=== PATIENT | male | born 1960 | race Caucasian/White ===

== ENCOUNTER 2018-08-17 09:46 | Day surgery (SDC) | payer BC ==
[~2018-08-17 09:46] MED LIST: Lactated Ringers 1,000 ML IV SCH; Propofol 200 MG/20 ML SDV ONE; Sodium Chloride 0.9% 10 ML Syringe FLUSH PRN
--- NOTE | 2018-08-17 11:45 | PCM.PN ---
- General Info Date of Service: 08/17/18 - Review of Systems Systems Review Comment:: 58 y/o male here for his first colonoscopy. He denies any recent colon symptoms and also denies any family history of colon cancer. He is medically stable to proceed today with no significant recent change in his health status. I discussed the proposed colonoscopy with the patient. Risks such as but not limited to bleeding and GI injury reviewed. He appears to understand and agrees to proceed. - Patient Data Vitals - Most Recent: Last Vital Signs Temp 97.8 F 08/17/18 10:30 Pulse 74 08/17/18 10:30 Resp 18 08/17/18 10:30 BP 130/84 08/17/18 10:30 Pulse Ox 94 L 08/17/18 10:30 Weight - Most Recent: 108.862 kg Med Orders - Current: Current Medications Lactated Ringer's (Ringers, Lactated) 1,000 mls @ 125 mls/hr IV ASDIRECTED ANNE Last Admin: 08/17/18 10:21 Dose: 125 mls/hr Sodium Chloride (Saline Flush) 10 ml FLUSH ASDIRECTED PRN PRN Reason: Keep Vein Open Discontinued Medications Propofol (Diprivan 20 Ml) Confirm Administered Dose 400 mg .ROUTE .STK-MED ONE Stop: 08/17/18 08:00 - Problem List Review Problem List Initiated/Reviewed/Updated: Yes - Assessment Assessment:: colon cancer screening - Plan Plan:: colonoscopy
[2018-08-17] MEDS ORDERED: Propofol 200 MG/20 ML SDV ONE (11:51)
--- NOTE | 2018-08-17 12:28 | PCM.OPNOTE ---
- General Post-Op/Procedure Note Date of Surgery/Procedure: 08/17/18 Operative Procedure(s): Colonoscopy Findings: large External hemorrhoid but otherwise normal colon Pre Op Diagnosis: Colon Cancer Screening Post-Op Diagnosis: Hemorrhoids Anesthesia Technique: MAC Primary Surgeon: Brandon Calvert Pathology: none Output, Urine Amount: 0 EBL in mLs: 0 Complications: None Condition: Good
[2018-08-17 12:54] VITALS: BP 118/74
--- NOTE | 2018-08-17 13:15 | OR ---
Date of Procedure: 08/17/2018 PREOPERATIVE DIAGNOSIS: Colon cancer screening. POSTOPERATIVE DIAGNOSIS: External hemorrhoid. OPERATION PERFORMED: Colonoscopy. INDICATIONS FOR SURGERY: This 58-year-old male presents today for his initial screening colonoscopy. He denies any recent symptoms or any known family history of colon cancer. FINDINGS: The patient's colon appears normal. He does have a prominent external hemorrhoid, but this appears benign, and no other pathology is noted. DESCRIPTION OF PROCEDURE: The patient was taken to the operating room. He was given intravenous sedation, and with him in the left lateral decubitus position, a digital rectal exam was performed showing no rectal masses. The Olympus colonoscope was inserted into the rectum and retroflexed. Examination of the rectal canal was performed. The scope was then carefully advanced under direct visualization through the entire length of the colon until the cecum was reached. Cecal acquisition was confirmed by noting normal internal cecal anatomy including the appendiceal orifice and ileocecal valve. The light was also noted to transilluminate the abdominal wall in the right lower quadrant. After examining the cecum, the scope was slowly withdrawn sequentially re- examining the colonic segments until the entire colon and rectum have been fully examined. The scope was removed, and the patient was taken from the operating room in satisfactory condition. ESTIMATED BLOOD LOSS: Zero. COMPLICATIONS: None. PROGNOSIS: Good. RUTH Calvert MD /[id number]
== END 2018-08-17 13:55 | disposition home or self-care (01) ==
LOC: LL.SDS 09:46
PROVIDERS: ATTEND Surgery
DX: Z12.11 Encounter for screening for malignant neoplasm of colon (principal); K64.4 Residual hemorrhoidal skin tags; I10 Essential (primary) hypertension; E78.5 Hyperlipidemia, unspecified; D68.51 Activated protein C resistance; Z79.899 Other long term (current) drug therapy
CPT/HCPCS: J2704; J7120

== ENCOUNTER 2019-12-31 05:14 | Emergency (ER) | payer BC, OTHER ==
[2019-12-31 05:27] VITALS: BP 142/97; PULSE 88
--- NOTE | 2019-12-31 05:36 | EDM.PDOC ---
ED HPI GENERAL MEDICAL PROBLEM - General Chief Complaint: Upper Extremity Injury/Pain Stated Complaint: left hand injury Time Seen by Provider: 12/31/19 05:30 Source of Information: Reports: Patient, Old Records ([facility] chart/EMR) History Limitations: Reports: No Limitations - History of Present Illness INITIAL COMMENTS - FREE TEXT/NARRATIVE: The patient was brought to the emergency room via transport vehicle from [facility] for evaluation of a Workmen's Compensation injury, which occurred at about 04: 20 hours this morning. The patient got his fourth finger of his left hand caught on a hydraulic clamp on a jig resulting in a laceration with no treatment prior to arrival. The patient is left-handed and has not injured this finger in the past. No history of foreign body, paresthesias, neurological deficits, other complaints/injuries, etc. No recent history of abdominal pain, heartburn, nausea, diarrhea, melena, gross hematochezia, or any food intolerance , including fatty foods, etc.. The patient also denies any recent fever, cough, wheezing, dyspnea, etc.. Onset: Today, Sudden Onset Date: 12/31/19 Onset Time: 04:20 Duration: Constant Location: Reports: Upper Extremity, Left. Denies: Head, Face, Neck, Chest, Abdomen, Back, Pelvis, Lower Extremity, Left, Radiates to Quality: Reports: Throbbing Severity: Mild Improves with: Reports: Rest Worsens with: Reports: Movement Context: Reports: Trauma (As above) Associated Symptoms: Denies: Confusion, Chest Pain, Cough, Diaphoresis, Fever/ Chills, Headaches, Loss of Appetite, Malaise, Nausea/Vomiting, Seizure, Shortness of Breath, Syncope, Weakness Treatments MODEL BUILDER DISPLAY: Reports: Dressing(s) Left Finger-Ring Pain Score (Numeric/FACES): 2 - Related Data Allergies Allergy/AdvReac Type Severity Reaction Status Date / Time No Known Allergies Allergy Verified 12/31/19 05:15 Home Meds: Home Meds Simvastatin [Zocor] 20 mg PO BEDTIME 02/26/15 [History] Terazosin [Hytrin] 1 mg PO BEDTIME 02/26/15 [History] Omeprazole 20 mg PO DAILY 08/16/18 [History] Amoxicillin/Clavulanate K [Augmentin 875-125 MG] 1 tab PO BIDMEALS #20 tablet [Rx] Fish,Saf,Flx,Brg Oils/O3,6,9N2 [Bery-Ldjv-Nevxaq Oil Softgel] 2 cap PO DAILY 09/09 [History] Ibuprofen/Diphenhydramine Cit [Advil Pm Caplet] 2 tab PO BEDTIME PRN 12/31/19 [ History] Past Medical History HEENT History: Reports: Allergic Rhinitis. Denies: Hard of Hearing, Impaired Vision Other HEENT History: Chronic rhinitis Cardiovascular History: Reports: Blood Clots/VTE/DVT, High Cholesterol, Hypertension, Other (See Below) Other Cardiovascular History: DVT of the left calf in August 1995. Respiratory History: Denies: PE, Sleep Apnea Gastrointestinal History: Reports: Gastritis, Hemorrhoids, PUD, Other (See Below ) Other Gastrointestinal History: Esophagitis with gastric ulcers by EGD in 2014 as below. Genitourinary History: Reports: BPH Musculoskeletal History: Reports: Amputation, Arthritis, Back Pain, Chronic, Osteoarthritis, Other (See Below). Denies: Fracture, Gout, RA, SLE Other Musculoskeletal History: Chronic tendonitis of Right ankle. Partial amputation of distal phalanx of digit #3 of the right hand in 1993 secondary to a lawnmower injury. 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 Restless leg syndrome. Endocrine/Metabolic History: Reports: Obesity/BMI 30+ Hematologic History: Reports: Other (See Below) Other Hematologic History: Heterozygous Factor V Leiden mutation. - Past Surgical History Head Surgeries/Procedures: Reports: Craniotomy, Other (See Below) Other Head Surgeries/Procedures: Right-sided craniotomy for removal of cerebral scar tissue from meningitis with temporal lobectomy in 1994. HEENT Surgical History: Reports: LASIK, Other (See Below) Other HEENT Surgeries/Procedures: Septoplasty in October 2013. LASIK in 2004. GI Surgical History: Reports: Colonoscopy, EGD, Other (See Below) Other GI Surgeries/Procedures: EGD on 02/27/15. Colonoscopy on 08/17/18. Rectal fissure repair in the early . Neurological Surgical History: Reports: Other (See Below) Other Neurological Surgeries/Procedures: Right Temporal lobectomy for epilepsy Musculoskeletal Surgical History: Reports: Amputation, Other (See Below) Other Musculoskeletal Surgeries/Procedures:: Right #3 finger distal interphalangeal joint traumatic amputation repair. Bone spurs removals from the right ankle in October 2010. - Past Imaging History Past Imaging History: Reports: CAT Scan (CT of the maxillofacial region on .), MRI (MRI of the right ankle on 10/21/10. MRI of the brain on 09/30/10.), Sleep Study (08/26/10.) Social & Family History - Family History Cardiac: Reports: Hypertension, Other (See Below) Other Cardiac Family History: Hypertension in father. Neurological: Reports: Alzheimers Disease, Dementia, Other (See Below) Other Neurological Family History: Alzheimer's disease in father and paternal grandfather. Endocrine/Metabolic: Reports: Diabetes, type II, Other (See Below) Other Endocrine/Metabolic Family History: Mother with AODM. Hematologic: Reports: Other (See Below) Other Hematologic Family History: Mother with factor V Leiden deficiency. Oncologic: Reports: Prostate, Other (See Below) Other Oncologic Family History: Father with prostate cancer in his 60s. Paternal grandfather with testicular cancer. - Tobacco Use Smoking Status *Q: Never Smoker (Although experimental as a teenager) Tobacco Use Within Last Twelve Months: No Used Tobacco, but Quit: No Smoking Cessation Information Provided To Patient: No Second Hand Smoke Exposure: No Second Hand Smoke Education Provided: No - Living Situation & Occupation Occupation: Employed ([employer]) Review of Systems - Review of Systems Review Of Systems: Comprehensive ROS is negative, except as noted in HPI. ED EXAM, GENERAL - Physical Exam Exam: See Below Exam Limited By: No Limitations General Appearance: Alert, WD/WN, No Apparent Distress Head: Atraumatic, Normocephalic Neck: Normal Inspection, Supple, Non-Tender, Full Range of Motion. No: Lymphadenopathy (L), Lymphadenopathy (R), Thyromegaly Respiratory/Chest: No Respiratory Distress, Lungs Clear, Normal Breath Sounds, No Accessory Muscle Use, Chest Non-Tender. No: Pleural Rub, Retractions Cardiovascular: Normal Peripheral Pulses, Regular Rate, Rhythm, No Edema, No Gallop, No JVD, No Murmur, No Rub. No: Gallop/S3, Gallop/S4, Friction Rub Peripheral Pulses: 2+: Radial (L), Radial (R) GI/Abdominal: Normal Bowel Sounds, Soft, Non-Tender, No Organomegaly, No Distention, No Abnormal Bruit, No Mass (Male) Exam: Deferred Rectal (Males) Exam: Deferred Back Exam: Normal Inspection, Full Range of Motion. No: CVA Tenderness (L), CVA Tenderness (R), Muscle Spasm Extremities: Normal Range of Motion, No Pedal Edema, Normal Capillary Refill, Other (1 cm in diameter irregular denudement injury of the tip of digit #4 of the left hand with nail involvement. No foreign body, deformity, etc.). No: Joint Swelling, Increased Warmth Neurological: Alert, Oriented, CN II-XII Intact, Normal Cognition, Normal Gait, Normal Reflexes, No Motor/Sensory Deficits Psychiatric: Normal Affect, Normal Mood Skin Exam: Wound/Incision (Laceration as above). No: Diaphoretic Lymphatic: No Adenopathy ED TRAUMA EXTREMITY PROCEDURES - Laceration/Wound Repair Left Distal Digit - 4th (Ring) Lac/Wound Length In cm: 1.0 Appearance: Subcutaneous, Irregular, Other (Denudement injury) Distal NVT: Neuro & Vascular Intact, No Tendon Injury Anesthetic Type: Local Local Anesthesia - Lidocaine (Xylocaine): 1% Plain Local Anesthetic Volume: 3cc Skin Prep: Providone-Iodine (Betadine), Other (Surgical scrub brush) Saline Irrigation (cc's): 0 Exploration/Debridement/Repair: Wound Explored, In a Bloodless Field, Explored to Base, No Foreign Material Found, Multiple Flaps Aligned Closed With: Sutures Suture Size: 4-0 # of Sutures: 4 Suture Type: Nylon, Interrupted, Simple Course - Vital Signs Last Recorded V/S: Last Vital Signs Temp 36.8 C 12/31/19 05:25 Pulse 88 12/31/19 05:25 Resp 20 12/31/19 05:25 BP 142/97 H 12/31/19 05:25 Pulse Ox 88 L 12/31/19 05:25 Vital Signs - 24 hr 12/31/19 05:25 Temperature [ 36.8 C Oral] Pulse, 88 Peripheral [ Right Pulse Oximetry] Respiratory 20 Rate Blood Pressure 142/97 H [Right Upper Arm] O2 Sat by Pulse 88 L Oximetry - Orders/Labs/Meds Orders: Active Orders 24 hr Category Date Time Status Vaccines to be Administered [RC] PER UNIT ROUTINE Care 12/31/19 05:40 Active Fingers Fourth Digit Lt F3 [CR] Stat Exams 12/31/19 05:37 Ordered Durable Medical Equipment for Discharge [DME for Oth 12/31/19 05:56 Ordered Discharge] [COMM] Routine Obtain Past Medical Record [OM.PC] Routine Oth 12/31/19 05:36 Active Labs: None Meds: Medications Discontinued Medications Generic Name Dose Route Start Last Admin Trade Name Freq PRN Reason Stop Dose Admin Diphtheria/Tetanus/Acell Pertussis 0.5 ml 12/31/19 05:39 12/31/19 05:46 Adacel IM 12/31/19 05:40 0.5 ml .ONCE ONE Administration Lidocaine HCl 5 ml 12/31/19 05:36 12/31/19 05:53 Xylocaine-Mpf 1% INJECT 12/31/19 05:37 5 ml ONETIME ONE Administration Lidocaine HCl 5 ml 12/31/19 05:56 12/31/19 05:58 Xylocaine-Mpf 1% INJECT 12/31/19 05:57 5 ml ONETIME ONE Administration Neomycin/Polymyxin/Bacitracin 1 each 12/31/19 05:37 12/31/19 05:53 Triple Antibiotic Oint TOP 12/31/19 05:38 1 each ONETIME ONE Administration - Radiology Interpretation Free Text/Narrative:: X-rays of digit #4 of the left hand, complete, shows evidence of a mildly dislocated tuft fracture with no evidence of foreign body, joint involvement, etc. Departure - Departure Time of Disposition: 07:00 Disposition: Home, Self-Care 01 Condition: Good Clinical Impression: Laceration, Peptic ulcer disease, Open fracture of tuft of distal phalanx of finger, Osteoarthritis Hypertension Qualifiers: Hypertension type: essential hypertension Qualified Code(s): I10 - Essential ( primary) hypertension Hyperlipidemia Qualifiers: Hyperlipidemia type: unspecified Qualified Code(s): E78.5 - Hyperlipidemia, unspecified - Discharge Information *PRESCRIPTION DRUG MONITORING PROGRAM REVIEWED*: Not Applicable *COPY OF PRESCRIPTION DRUG MONITORING REPORT IN PATIENT CEFERINO: Not Applicable Prescriptions: Amoxicillin/Clavulanate K [Augmentin 875-125 MG] 1 tab PO BIDMEALS #20 tablet Instructions: Finger Fracture, Adult, [id number], Laceration Care, Adult, [id number], Stitches, Yahir, or Adhesive Wound Closure, [id number] Referrals: Kateryna Boone NP [Primary Care Provider] - Forms: ED Department Discharge Additional Instructions: 1. Followup with your regular provider in 10-14 days as directed for reevaluation, repeat x-rays of your finger, and removal of sutures. Bring these discharge instructions with you to that visit. 2. Tylenol 650 mg by mouth every 4 hours and/or OTC ibuprofen 2-3 tabs by mouth every 6 hours with food as directed./needed. You may stagger these medications for 48-72 hours only, which essentially means that you are receiving a pain medication about every 2 hours. 3. Antibacterial soap wash/soak with subsequent antibacterial dressing such as Neosporin, etc. as directed 2 times per day until the wound or laceration site completely heals. Keep the area clean and dry with activity restrictions as discussed, including wearing your finger splint at all times with exception of bathing and wound care. Never use hydrogen peroxide for wound care. 4. Work excuse- See Form 5. Immediately after this visit verify that your cellular telephone's voicemail has been activated and is empty. Also verify that your home telephone 's answering machine is operating properly and has space to receive messages. Note that it is sometimes necessary for us to be able to contact you at a later date to discuss your medical care. 6. Please remember that we are ALWAYS here for you and want to answer any questions you may have. Feel free to call the hospital any time and we call you back NETTE. Sepsis Event Note - Evaluation Sepsis Screening Result: No Definite Risk - Focused Exam Vital Signs: Vital Signs Temp Pulse Resp BP Pulse Ox 12/31/19 05:25 36.8 C 88 20 142/97 H 88 L Date Exam was Performed: 12/31/19 Time Exam was Performed: 06:38 - Problem List & Annotations (1) Laceration SNOMED Code(s): 760407624 Code(s): BIF4421 - Status: Acute Priority: High Onset Date: 12/31/19 Annotation/Comment:: Adequate results with laceration repair as above, however note denudement injury with patient counseled on probable slow healing by secondary intention. Wound care, activity restrictions, etc. were discussed. Last TdAP on 12/21/10, which was confirmed by the ER nurse through [employer]. [employer] excuse and Workmen's Compensation forms were completed. Tuft fracture representing an open fracture, which will be treated with Augmentin. DTaP given in the emergency room. The nurse did apply a tube gauze dressing, which be removed in 24 hours. Subsequent use of a 3-hole finger splint which was provided to the patient today. (2) Open fracture of tuft of distal phalanx of finger SNOMED Code(s): 229360838 Code(s): S62.639B - DISP FX OF DISTAL PHALANX OF UNSP FINGER, INIT FOR OPN FX Status: Acute Priority: High Onset Date: 12/31/19 Annotation/Comment: : As above. Repeat x-rays at follow-up at time of suture removal. (3) Hyperlipidemia SNOMED Code(s): 63761869 Code(s): E78.5 - HYPERLIPIDEMIA, UNSPECIFIED Status: Chronic Priority: Medium Annotation/Comment:: Currently under therapy. Weight loss in moderation advisable. Qualifiers: Hyperlipidemia type: unspecified Qualified Code(s): E78.5 - Hyperlipidemia , unspecified (4) Hypertension SNOMED Code(s): 53088235 Code(s): I10 - ESSENTIAL (PRIMARY) HYPERTENSION Status: Chronic Priority : Medium Annotation/Comment:: Blood Pressure somewhat elevated secondary to discomfort an acute injury. Continue to observe closely by his regular provider. Currently under therapy. Qualifiers: Hypertension type: essential hypertension Qualified Code(s): I10 - Essential (primary) hypertension (5) Peptic ulcer disease SNOMED Code(s): 94580667 Code(s): K27.9 - PEPTIC ULC, SITE UNSP, UNSP AC OR CHR, W/O HEMOR OR PERF Status: Chronic Priority: Medium Annotation/Comment:: Stable by history. Patient was cautioned not to use Advil PM secondary to his history of gastritis and stomach ulcers. (6) Osteoarthritis SNOMED Code(s): 769652973 Code(s): M19.90 - UNSPECIFIED OSTEOARTHRITIS, UNSPECIFIED SITE Status: Chronic Priority: Medium Annotation/Comment:: Otherwise stable by history Qualifiers: Osteoarthritis location: multiple joints Osteoarthritis type: primary Qualified Code(s): M15.0 - Primary generalized (osteo)arthritis - Problem List Review Problem List Initiated/Reviewed/Updated: Yes - My Orders Last 24 Hours: My Active Orders 12/31/19 05:36 Obtain Past Medical Record [OM.PC] Routine 12/31/19 05:37 Fingers Fourth Digit Lt F3 [CR] Stat 12/31/19 05:40 Vaccines to be Administered [RC] PER UNIT ROUTINE 12/31/19 05:56 Durable Medical Equipment for Discharge [DME for Discharge] [COMM] Routine - Assessment/Plan Last 24 Hours: My Active Orders 12/31/19 05:36 Obtain Past Medical Record [OM.PC] Routine 12/31/19 05:37 Fingers Fourth Digit Lt F3 [CR] Stat 12/31/19 05:40 Vaccines to be Administered [RC] PER UNIT ROUTINE 12/31/19 05:56 Durable Medical Equipment for Discharge [DME for Discharge] [COMM] Routine Assessment:: As above Plan: As above. Extensive precautions were given to the patient, who is in agreement with the treatment plan. See Patient Instructions for further treatment and plan.
[2019-12-31] MEDS ORDERED: Bacitracin/Neomycin/Polymyxin B Oint 0.9 GM U/D Packet TOP ONE (05:37)
[2019-12-31] MEDS ORDERED: Diphtheria,Pertussis(Acell),Tetanus Vaccine 0.5 ML SDV IM ONE (05:39)
== END 2019-12-31 07:00 | disposition home or self-care (01) ==
LOC: LL.ED 05:14
DX: S62.635B Displaced fracture of distal phalanx of left ring finger, initial encounter for open fracture (principal); K27.9 Peptic ulcer, site unspecified, unspecified as acute or chronic, without hemorrhage or perforation; E78.5 Hyperlipidemia, unspecified; I10 Essential (primary) hypertension; M19.90 Unspecified osteoarthritis, unspecified site; Z23 Encounter for immunization; W23.0XXA Caught, crushed, jammed, or pinched between moving objects, initial encounter
CPT/HCPCS: 12001; 73140; 90471; 90715; 99283; J2001